=== PATIENT | female | born 2000 | race Two or more races ===

== ENCOUNTER 2023-09-09 14:15 | Emergency (ER) | payer BC ==
[~2023-09-09] VITALS: Ht 162.6 cm; Wt 86.2 kg
[2023-09-09 16:23] LABS: *BILIRUBIN,URIN NEGATIVE (NEGATIVE); *BLOOD, URINE NEGATIVE (NEGATIVE); *CLARITY,URINE CLEAR (CLEAR); *COLOR,URINE YELLOW (YELLOW); *KETONES,URINE NEGATIVE (NEGATIVE); *PROTEIN,URINE NEGATIVE (NEGATIVE); *UROBILINOGEN,URINE 0.2 E.U./dl (NORMAL); LEUKOCYTE ESTERASE ,URINE TRACE (NEGATIVE); NITRITE, URINE NEGATIVE (NEGATIVE); PH,URINE 7.5 (5.0-8.0); UGLUCOSE NEGATIVE (NEGATIVE)
[2023-09-09 16:27] LABS: *URINE HCG, QUAL NEGATIVE (NEGATIVE)
[2023-09-09 16:32] LABS: BACTERIA,URINE FEW /HPF (NONE SEEN); RBC,URINE NONE SEEN /HPF (0-3); SQUAMOUS EPITHELIAL CELL,UR FEW /HPF (NONE SEEN); WBC,URINE 0-3 /HPF (0-3)
[2023-09-09 16:43] LABS: CALCIUM 8.9 mg/dL (8.5-10.1); CREATININE 0.6 mg/dL (0.6-1.3); POTASSIUM 3.7 mmol/L (3.5-5.1)
[2023-09-09 17:27] VITALS: BP 131/74; TEMP 98.3; O2SAT 97
== END 2023-09-09 17:28 | disposition home or self-care (01) ==
LOC: ER 14:24
DX: R06.00 Dyspnea, unspecified (principal); R10.2 Pelvic and perineal pain; Z88.2 Allergy status to sulfonamides
CPT/HCPCS: 36415; 71045; 84484; 84703; 93005; A4606; A4663